=== PATIENT | male | born 1965 | race Hispanic/Latino ===

== ENCOUNTER 2017-05-12 07:33 | Day surgery (SDC) | payer OTHER ==
[2017-05-12] MEDS ORDERED: NITROSTAT SL NR (08:25)
[2017-05-12] MEDS ORDERED: LOPRESSOR IV NR (08:26)
[2017-05-12] MEDS ORDERED: ATROPINE 0.1% (CARDIAC) ONE (09:20)
[2017-05-12 10:00] VITALS: BP 117/65
--- NOTE | 2017-05-13 07:41 | Cat Scan Report ---
LIMITED CT OF THE CHEST PER CT CORONARY ANGIOGRAPHY PROTOCOL: History: Abnormal stress test. Limited CT of the chest per CT coronary angiography protocol is submitted. The cardiac portion of the exam has been previously interpreted by the [employer]. The included portions of the lungs appear clear without evidence for nodule, mass or infiltrate. The included pleural spaces are clear. No mediastinal or hilar adenopathy is evident. Included upper abdomen and solid abdominal organs are grossly within normal limits. IMPRESSION: Normal limited CT of the chest as noted.
--- NOTE | 2017-05-20 08:27 | Procedure Note ---
CARDIAC CT ANGIOGRAM INDICATION FOR PROCEDURE: Chest pain. Informed consent was obtained. DESCRIPTION OF PROCEDURE: The patient was brought to the cardiac CT angiography laboratory at [facility] in stable condition after a [address] coronary angiography was performed on the 64 slice scanner using the standard protocol. Heart rate was regulated by beta blockade. Sublingual nitroglycerin was administered prior to imaging. A coronary artery calcium score via the Agatston method was performed. A separate radiology assessment of the noncardiac structures in the field of view will be provided. Left ventricular systolic function was evaluated by the volumetric segmentation threshold based approach. After data acquisition and reconstruction at the computer console, the images were post-processed on the workstation. Volume rendered images, multiplanar reformatted images, and maximum intensity images were generated and reviewed. The superior and inferior vena cava in the field of view appeared normal. The ascending and descending aorta in the field of view appear normal. The pulmonary veins enter the left atrium appropriately. The pulmonary artery in the field of view appears normal. The left and right ventricles appeared normal. The interventricular septum appears normal. The left and right atria appear normal. The interatrial septum appears normal. The left atrial appendage appears normal. There are no intracardiac masses. The mitral and aortic valves appear normal. The pericardium appears normal. There is no pericardial effusion. Left ventriculography demonstrates normal end systolic and diastolic chamber size, wall motion, and left ventricular systolic thickening. The left ventricular ejection fraction is 58%. The coronary artery calcium score via the Agatston method was 32.98. Calcium was noted in the left anterior descending coronary artery and the right coronary artery. Coronary angiography reveals a right dominant system. The coronary arteries originate properly from their respective cusps. The right coronary artery contains mild nonobstructive calcific plaque. The left main coronary artery appears normal. The left anterior descending coronary artery and the diagonal system reveal mild nonobstructive calcific plaque in the left anterior descending coronary artery. The circumflex coronary artery appears normal. Cardiac CT angiography demonstrates normal cardiac chamber dimensions, wall motion, and left ventricular systolic function. This is a right dominant system. The coronary arteries originate properly from their respective sinuses. The coronary artery calcium score is 32.98. Mild nonobstructive calcific plaque is present in the left anterior descending coronary artery and the right coronary artery. The procedure was well tolerated. There were no complications. [facility]# [id number] [place]
== END 2017-05-12 10:19 | disposition home or self-care (01) ==
LOC: CATHLABREC 07:33 → EDSTATUS 08:45 → CATHLABREC 10:19
PROVIDERS: ATTEND Internal Medicine
DX: R94.39 Abnormal result of other cardiovascular function study (principal); R07.89 Other chest pain
CPT/HCPCS: 75574; Q9967; J0461